=== PATIENT | female | born 1975 | race Caucasian/White ===

== ENCOUNTER 2025-02-01 13:45 | Emergency (ER) | payer OTHER, SELFPAY ==
[2025-02-01] VITALS (17 sets, daily range): BP systolic 129–179; BP diastolic 57–94; PULSE 20–75; RESP 16–24; TEMP 36.7; O2SAT 91–100; BMI 74.5
--- NOTE | 2025-02-01 14:18 | PC.NURSE ---
Son Nico Dunn [phone]
[2025-02-01 15:18] LABS: Add Manual Diff / Slide Review NO; Hematocrit 42.8 % (36-46); Hemoglobin 14.9 g/dL (12.0-16.0); Lymphocytes Absolute Auto 1100 /uL (1100-4500); Mean Corpuscular HGB Conc 34.7 % (30-36); Mean Corpuscular Hemoglobin 31.3 PG (26-34); Mean Corpuscular Volume 90.1 fL (80-100); Platelet Count 207 X10^3/uL (150-400)
[2025-02-01 15:22] LABS: Pregnancy Test Serum,Qual Negative (Negative)
[2025-02-01 15:23] LABS: Alanine Aminotransferase 18 IU/L (<35); Albumin 4.2 g/dL (3.5-5.0); Albumin Globulin Ratio 1.5 (1.0-2.8); Alkaline Phosphatase 55 U/L (38-126); Blood Urea Nitrogen 23 mg/dL (7-17); Calcium 9.2 mg/dL (8.4-10.2); Carbon Dioxide 18 mmol/L (22-32); Chloride 108 mmol/L (98-107); Estimated Glomerular Filt Rate > 60 mL/min (>60); Globulin 2.8 g/dL (1.7-4.1); Glucose 126 mg/dL (70-99); HEMOLYSIS 43 (0-50); Lipase 118 U/L (23-300); Potassium 4.3 mmol/L (3.4-5.1); Sodium 138 mmol/L (137-145); Total Protein 7.0 g/dL (6.3-8.2)
[2025-02-01] MEDS: SODIUM CHLORIDE 0.9% 1,000 ML 1000 ML IV (15:24)
[2025-02-01] MEDS: ONDANSETRON 4 MG/2 ML INJ IV (15:25)
[2025-02-01 16:05] LABS: Appearance Urine UA CLEAR; Bilirubin Urine UA NEGATIVE (NEGATIVE); Color Urine UA YELLOW; Glucose Urine UA NEGATIVE (Negative); Ketones Urine UA 2+ (NEGATIVE); Leukocyte Esterase Urine UA NEGATIVE (NEGATIVE); Nitrite Urine UA NEGATIVE (Negative); Occult Blood Urine UA NEGATIVE (Negative); Protein Urine UA NEGATIVE (Negative); Specific Gravity Urine UA 1.020 (1.000-1.035); Urobilinogen Urine UA 1.0 E.U./dL (0.2); pH Urine UA 7.5 (4.5-8.0)
[2025-02-01 16:14] LABS: Culture Indicated Urine Cult Not Indicated
--- NOTE | 2025-02-01 16:51 | ED.ABDPAIN ---
HPI - Abdominal Pain General Chief Complaint: Abdominal Pain Stated Complaint: Vomitting, Abd Pain Time Seen by Provider: 02/01/25 15:04 Mode of arrival: EMS History of Present Illness HPI narrative: Pt presents to the ER with a past medical history significant for heavy alcohol use (quit September 08). Velia, a 50-year-old female, reports constant abdominal pain for the past three days. The pain is located across the upper abdomen and has been persistent since onset, with a brief period of slight improvement that never fully resolved. The pain is currently described as severe. The abdominal pain started concurrently with episodes of vomiting, which began three days ago. She reports vomiting 5-6 times in the last 24 hours, with no blood noted in the vomit. The patient denies any history of stomach issues, pancreatitis, or diverticulitis. She also denies current diarrhea or pain when urinating. The patient has taken ibuprofen at home for pain relief. She denies any known allergies. The patient reports using marijuana recreationally but has quit alcohol use as of September 08. Her last menstrual period was last month, and she is not on any control. Related Data Previous Rx's ?Medication ?Instructions ?Recorded ciprofloxacin HCl 500 mg tablet 500 mg PO BID #14 tabs 02/01/25 metronidazole 500 mg tablet 500 mg PO Q8H #21 tabs 02/01/25 ondansetron 4 mg disintegrating 4 mg PO Q8H #12 tabs 02/01/25 tablet oxycodone-acetaminophen 5 mg-325 1 tab PO Q6H PRN pain #10 tabs 02/01/25 mg tablet (Percocet) Allergies Allergy/AdvReac Type Severity Reaction Status Date / Time No Known Drug Allergies Allergy Verified 02/01/25 13:50 Patient History Social History Smoking Status: Current some day smoker Smoking Status: Current some day smoker Exam Narrative Exam Narrative: VS as noted above Focused physical exam as follows: General: Well developed, well nourished, very uncomfortable and writing in pain HEENT: pink palpebral conjunctiva, anicteric sclera, LISSET, moist mucous membranes, no JVD, no cervical lymphadenopathy Lungs: no respiratory distress, clear to auscultation without wheezes or crackles; equal breath sounds Heart: normal rate, regular rhythm, no appreciable murmurs Abdomen: soft, diffuse tenderness across upper abdomen, no rebound or rigidity Musculoskeletal: no gross deformities with full ROM in all extremities, no pedal edema Skin: pink, warm; no rashes Neuro: ?AAOx3, GCS 15, nonfocal exam Psyche: no SI/HI, normal affect Initial Vital Signs Initial Vital Signs: Vital Signs Temperature 98.1 F 02/01/25 13:48 Pulse Rate 46 L 02/01/25 13:48 Respiratory Rate 16 02/01/25 13:48 Blood Pressure 133/66 02/01/25 13:48 Pulse Oximetry 100 02/01/25 13:48 Oxygen Delivery Method Room Air 02/01/25 13:48 Course Orders Ordered: Discontinued Medications Ciprofloxacin (Ciprofloxacin 250 Mg Tablet) 500 mg PO NOW ONE Stop: 02/01/25 18:08 Last Admin: 02/01/25 18:17 Dose: 500 mg Documented By: SELINA Hydromorphone HCl (Hydromorphone Hcl 0.5 Mg/0.5 Ml Syringe) 0.5 mg IV NOW ONE Stop: 02/01/25 15:10 Last Admin: 02/01/25 15:25 Dose: 0.5 mg Documented By: SELINA Hydromorphone HCl (Hydromorphone Hcl 0.5 Mg/0.5 Ml Syringe) 0.5 mg IV NOW ONE Stop: 02/01/25 17:18 Last Admin: 02/01/25 17:30 Dose: 0.5 mg Documented By: SELINA Sodium Chloride (Normal Saline 0.9%) 1,000 mls @ 1,000 mls/hr IV BOLUS ONE Stop: 02/01/25 16:08 Last Infusion: 02/01/25 16:20 Dose: Infused Documented By: Admin: 02/01/25 15:24 Dose: 1,000 mls/hr Documented By: SELINA Metronidazole (Metronidazole 500 Mg Tablet) 500 mg PO NOW ONE Stop: 02/01/25 18:08 Last Admin: 02/01/25 18:16 Dose: 500 mg Documented By: SELINA Ondansetron HCl (Ondansetron 4 Mg/2 Ml Inj) 4 mg IV NOW ONE Stop: 02/01/25 15:10 Last Admin: 02/01/25 15:25 Dose: 4 mg Documented By: SELINA Vital Signs Vital signs: Vital Signs - 8 hr 02/01/25 13:48 02/01/25 13:50 02/01/25 13:51 Temperature 98.1 F Pulse Rate 46 L 50 L Respiratory Rate 16 24 Blood Pressure 133/66 Pulse Oximetry 100 92 100 Oxygen Delivery Method Room Air 02/01/25 13:51 02/01/25 14:00 02/01/25 14:01 Temperature Pulse Rate 75 60 Respiratory Rate 20 22 Blood Pressure 133/66 Pulse Oximetry 97 99 Oxygen Delivery Method 02/01/25 14:01 02/01/25 14:30 02/01/25 14:30 Temperature Pulse Rate 64 Respiratory Rate Blood Pressure 142/57 H 154/94 H Pulse Oximetry 91 Oxygen Delivery Method 02/01/25 15:00 02/01/25 15:01 02/01/25 15:01 Temperature Pulse Rate 45 L 47 L Respiratory Rate 23 22 Blood Pressure 155/88 H Pulse Oximetry 95 Oxygen Delivery Method 02/01/25 15:30 02/01/25 15:32 02/01/25 15:32 Temperature Pulse Rate 50 L 47 L Respiratory Rate 16 23 Blood Pressure 143/75 H Pulse Oximetry Oxygen Delivery Method 02/01/25 15:52 02/01/25 15:52 02/01/25 16:00 Temperature Pulse Rate 24 L Respiratory Rate Blood Pressure 136/74 138/81 Pulse Oximetry 96 Oxygen Delivery Method 02/01/25 16:00 02/01/25 16:30 02/01/25 16:30 Temperature Pulse Rate 22 L 20 L Respiratory Rate 16 16 Blood Pressure 129/69 Pulse Oximetry 99 97 Oxygen Delivery Method 02/01/25 17:00 02/01/25 17:00 02/01/25 17:31 Temperature Pulse Rate 24 L 47 L Respiratory Rate 17 24 Blood Pressure 146/68 H Pulse Oximetry 99 100 Oxygen Delivery Method MDM - Abdominal Pain Lab Data 02/01/25 13:55 02/01/25 13:55 Labs: Lab Results 02/01/25 02/01/25 Range/Units 13:55 15:55 WBC 7.1 (4.5-11.0) X10^3/uL RBC 4.76 (4.0-5.2) X10^6/uL Hgb 14.9 (12.0-16.0) g/dL Hct 42.8 (36-46) % MCV 90.1 (80-100) fL MCH 31.3 (26-34) PG MCHC 34.7 (30-36) % RDW 12.8 (11.6-14.8) % Plt Count 207 (150-400) X10^3/uL Neut % (Auto) 79.3 H (50-75) % Lymph % (Auto) 15.1 L (25-40) % [place] % (Auto) 3.2 (3-14) % Eos % (Auto) 2.1 (2-4) % Baso % (Auto) 0.3 (0-2) % Neut # (Auto) 5600 (3029-6803) /uL Lymph # (Auto) 1100 (3728-9491) /uL [place] # (Auto) 200 (0-900) /uL Eos # (Auto) 200 (0-450) /uL Baso # (Auto) 0 (0-100) /uL Sodium 138 (137-145) mmol/L Potassium 4.3 (3.4-5.1) mmol/L Chloride 108 H (98-107) mmol/L Carbon Dioxide 18 L (22-32) mmol/L BUN 23 H (7-17) mg/dL Creatinine 0.94 (0.52-1.04) mg/dL Estimated GFR > 60 (>60) mL/min BUN/Creatinine Ratio 24.5 H (6-22) Glucose 126 H (70-99) mg/dL Calcium 9.2 (8.4-10.2) mg/dL Total Bilirubin 0.9 (0.2-1.3) mg/dL AST 26 (14-36) IU/L ALT 18 (<35) IU/L Alkaline Phosphatase 55 (38-126) U/L Total Protein 7.0 (6.3-8.2) g/dL Albumin 4.2 (3.5-5.0) g/dL Globulin 2.8 (1.7-4.1) g/dL Albumin/Globulin Ratio 1.5 (1.0-2.8) Lipase 118 (23-300) U/L Serum , Qual Negative (Negative) Urine Color Yellow Urine Appearance Clear Urine pH 7.5 (4.5-8.0) Ur Specific [place] 1.020 (1.000-1.035) Urine Protein Negative (Negative) Urine Glucose (UA) Negative (Negative) g/dL Urine Ketones 2+ H (NEGATIVE) Urine Occult Blood Negative (Negative) Urine Nitrate Negative (Negative) Urine Bilirubin Negative (NEGATIVE) Urine Urobilinogen 1.0 (0.2) E.U./dL Ur Leukocyte Esterase Negative (NEGATIVE) Urine RBC 0-1/hpf (0-5/HPF) Urine WBC 0-1/hpf (0-5/HPF) Ur Squamous Epith Cells 1-5 /hpf (0-5/HPF) Amorphous Sediment 2+ Urine Bacteria Occasional (0-1) (None) Ur Culture Indicated? Cult not indicated Vol Urine Centrifuged 10ml (spun) Imaging Data CT scan - abdomen/pelvis: Radiologist's Impression: Diffuse appearance of thickening within the colon without appreciable inflammatory change. This could represent diffuse incomplete distention. However, very early colitis should be considered secondary to infection/inflammation. Lobulated enhancing portions of the uterus suggestive of fibroids MDM Narrative Medical decision making narrative: HPI, PMHx, PSHx, Medication list, Allergies, ROS and Focused exam were reviewed above. ?Differential diagnosis as noted below. ?Social determinants affecting care considered. ?All of these were taken into consideration warranting above listed work up. ?Consultations as deemed necessary were documented below (if listed). Labs (if ordered and noted) were independently reviewed by me. Imaging studies (if ordered and noted) were independently reviewed by me EKG (if noted) was independently reviewed by me External documents (if reviewed) are documented above Initial VS noted above. ? Differential diagnosis considered include (but not limited to) the following: hiatal hernia, gastritis, GERD, gastric ulcer, pancreatitis, cholelithiasis/cystitis, liver failure, kidney failure, colitis, constipation, appendicitis, UTI, pyelo, ureteral calculus, diverticulitis, dehydration, adverse effect of illicit drug/ETOH Pt interviewed and examined. Pt with significant reproducible upper abdominal pain. IVF bolus, Dilaudid and Zofran ordered while awaiting studies. Labs reviewed - unremarkable. CT abd/pelvis ordered to further evaluate. See results above. Additional Dilaudid given for pain. Discussed plan of care. Will treat with antibiotics for colitis, Percocet for pain and nausea meds as needed. Stable for discharge with return precautions. Discharge Plan Departure Patient Disposition: Home Clinical Impression: Colitis, Epigastric abdominal pain Instructions: DI for Abdominal Pain-Adult, DI for Colitis Activity Restrictions/Additional Instructions: Work up today was generally reassuring although CT showed possible inflammation of your large intestines. Complete antibiotic course. Use Ibuprofen for mild pain and Percocet for severe pain. Use Zofran for nausea. Drink plenty of fluids. Eat at regular intervals. Return to the ER if with worsening symptoms. Prescriptions: New ciprofloxacin HCl 500 mg tablet 500 mg PO BID Qty: 14 0RF metronidazole 500 mg tablet 500 mg PO Q8H Qty: 21 0RF oxycodone-acetaminophen [Percocet] 5-325 mg tablet 1 tab PO Q6H PRN (Reason: pain) Qty: 10 0RF ondansetron 4 mg tablet,disintegrating 4 mg PO Q8H Qty: 12 0RF Stand Alone Forms: Patient Portal/API
--- NOTE | 2025-02-01 16:55 | DI.CT.S_ITS ---
PROCEDURE: CT ABDOMEN PELVIS W CON INDICATIONS: upper abdominal pain TECHNIQUE: After the administration of intravenous contrast, axial sections acquired from the lung bases to the pubic symphysis. Coronal and sagittal reformats were performed. For radiation dose reduction, the following was used: automated exposure control, adjustment of mA and/or kV according to patient size. COMPARISON: None. FINDINGS: Image quality: Diagnostic. Lower Chest: No significant findings. ABDOMEN: Liver: No solid mass. Liver measures 20.7 cm with steatosis. Gallbladder: Possible punctate dependent luminal stone without thickening. Biliary ducts: No biliary dilation. Pancreas: No ductal dilation. Spleen: Size is within normal limits. Adrenal Glands: No adrenal nodules. Kidneys and Ureters: No hydronephrosis. No solid mass. No complex renal cystic lesion which requires follow up. Stomach and Bowel: There is an overall appearance of thickening the within the colon. No pericolonic inflammatory change.. Minimal diverticula inflammatory change. Appendix is normal. Peritoneum: No abnormal intraperitoneal fluid. No free air. Ventral Wall: No significant ventral hernia. Abdominal Nodes: No retroperitoneal or mesenteric adenopathy by size criteria. Vessels: Aorta and inferior vena cava are normal in size. PELVIS: Pelvic Organs: Lobulated uterus with areas of enhancement. Bladder: No bladder wall thickening, accounting for underdistention. Pelvic Nodes: No enlarged lymph nodes. Miscellaneous: No inguinal hernias are seen. Bones: No aggressive osseous abnormality. IMPRESSION: Diffuse appearance of thickening within the colon without appreciable inflammatory change. This could represent diffuse incomplete distention. However, very early colitis should be considered secondary to infection/inflammation. Lobulated enhancing portions of the uterus suggestive of fibroids Dictated by: Yuliana Robles M.D. on 02/01/2025 at 17:48 Approved by: Yuliana Robles M.D. on 02/01/2025 at 17:52
[2025-02-01] MEDS: CIPROFLOXACIN 250 MG TABLET 500 MG PO (18:17)
== END 2025-02-01 18:31 | disposition home or self-care (01) ==
PROVIDERS: Emergency Provider Emergency Medicine
DX: K52.9 Noninfective gastroenteritis and colitis, unspecified (principal); R10.13 Epigastric pain
CPT/HCPCS: 74177; 80053; 81001; 83690; 84703; 85025; 96361; 96374; 96375; 96376; 99284; J1171; J2405; Q9967

== ENCOUNTER 2025-02-10 13:05 | Emergency (ER) | payer OTHER, SELFPAY ==
[2025-02-10 13:40] VITALS: BP 97/53; PULSE 77; RESP 16; TEMP 36.7; O2SAT 100; BMI 34.0
--- NOTE | 2025-02-10 14:08 | EKG_ITS ---
[facility] [address] [place] [id number] Test Date: 2025-02-10 Pat Name: Velia Dunn Department: [facility] Room: Gender: Female [employer]: CATALINA : 1975 Requested By: Order Number: [id number] Reading MD: Gene Valencia Measurements Intervals [place] Rate: 53 P: 53 GA: 132 QRS: 47 QRSD: 92 T: 41 QT: 444 QTc: 416 Interpretive Statements Sinus bradycardia Electronically Signed On 02-16-2025 7:26:35 PDT by Gene Valencia
[2025-02-10 14:27] LABS: Add Manual Diff / Slide Review NO; Hematocrit 42.3 % (36-46); Hemoglobin 14.2 g/dL (12.0-16.0); Lymphocytes Absolute Auto 1400 /uL (1100-4500); Mean Corpuscular HGB Conc 33.5 % (30-36); Mean Corpuscular Hemoglobin 30.7 PG (26-34); Mean Corpuscular Volume 91.4 fL (80-100); Platelet Count 209 X10^3/uL (150-400)
[2025-02-10 14:39] LABS: Alanine Aminotransferase 24 IU/L (<35); Albumin 3.9 g/dL (3.5-5.0); Albumin Globulin Ratio 1.4 (1.0-2.8); Alkaline Phosphatase 51 U/L (38-126); Blood Urea Nitrogen 20 mg/dL (7-17); Calcium 9.0 mg/dL (8.4-10.2); Carbon Dioxide 20 mmol/L (22-32); Chloride 113 mmol/L (98-107); Estimated Glomerular Filt Rate 59 mL/min (>60); Globulin 2.7 g/dL (1.7-4.1); Glucose 99 mg/dL (70-99); HEMOLYSIS < 15 (0-50); Lipase 180 U/L (23-300); Potassium 4.0 mmol/L (3.4-5.1); Sodium 139 mmol/L (137-145); Total Protein 6.6 g/dL (6.3-8.2)
[2025-02-10 17:46] VITALS: BP 114/54; PULSE 56; RESP 18; O2SAT 99
--- NOTE | 2025-02-10 19:45 | ED.ABDPAIN ---
HPI - Abdominal Pain General Chief Complaint: Abdominal Pain Stated Complaint: Return; abd pain and not getting better Time Seen by Provider: 02/10/25 19:44 Source: patient Mode of arrival: Ambulatory History of Present Illness HPI narrative: 50-year-old female with history of alcohol use last drink September 2024, upper abdominal pain evaluation [facility] ED 3 weeks ago believes that she was given in the antacid but not taking any oral antacid regularly since that time, has nontraumatic upper abdominal pain for the last week. Some nausea without emesis. No loose stools, no black or red stools. No fevers or chills. No painful or frequent urination. No cough or shortness of breath. Related Data Previous Rx's ?Medication ?Instructions ?Recorded ciprofloxacin HCl 500 mg tablet 500 mg PO BID #14 tabs 02/01/25 metronidazole 500 mg tablet 500 mg PO Q8H #21 tabs 02/01/25 ondansetron 4 mg disintegrating 4 mg PO Q8H #12 tabs 02/01/25 tablet oxycodone-acetaminophen 5 mg-325 1 tab PO Q6H PRN pain #10 tabs 02/01/25 mg tablet (Percocet) omeprazole 20 mg capsule,delayed 20 mg PO DAILY upper abdominal 02/10/25 release pain 30 days #30 caps Allergies Allergy/AdvReac Type Severity Reaction Status Date / Time No Known Drug Allergies Allergy Verified 02/10/25 13:40 Patient History Smoking Status: Current every day smoker Exam Narrative Exam Narrative: GENERAL: Well-developed patient, in mild distress. HEAD: Atraumatic. Normocephalic. EYES: Pupils equal round and reactive. Extraocular motions intact. No scleral icterus. No injection or drainage. ENT: Nose without bleeding, purulent drainage. Throat without erythema, tonsillar hypertrophy or exudate. Airway patent. NECK: Trachea midline. Non tender CARDIOVASCULAR: Regular rate and rhythm without murmurs, gallops, or rubs. RESPIRATORY: Clear to auscultation. Breath sounds equal bilaterally. No wheezes, rales, or rhonchi. GASTROINTESTINAL: Abdomen with epigastric area tenderness, nondistention, no tenderness right upper quadrant or right mid lower quadrant, nor in left lower quadrant left-sided. Periumbilical or inguinal or other ventral hernia obvious on examination. Bowel tones unremarkable, without rushes or tinkles. EXTREMITIES: No edema or joint tenderness. BACK: Nontender without deformity or crepitance. No flank tenderness. NEURO: AOx3. Motor functions grossly nonfocal. SKIN: No rash or erythema of visible areas Initial Vital Signs Initial Vital Signs: Vital Signs Temperature 98.0 F 02/10/25 13:40 Pulse Rate 77 02/10/25 13:40 Respiratory Rate 16 02/10/25 13:40 Blood Pressure 97/53 L 02/10/25 13:40 Pulse Oximetry 100 02/10/25 13:40 Oxygen Delivery Method Room Air 02/10/25 13:40 Course Orders Ordered: Discontinued Medications Sodium Chloride (Normal Saline 0.9%) 1,000 mls @ 1,000 mls/hr IV BOLUS ONE Stop: 02/10/25 20:51 Last Admin: 02/10/25 21:13 Dose: Not Given Documented By: ANIL Ondansetron HCl (Ondansetron 4 Mg/2 Ml Inj) 4 mg IV NOW PRN PRN Reason: Nausea And Vomiting Ondansetron HCl (Ondansetron 4 Mg Odt) 4 mg PO NOW PRN PRN Reason: Nausea And Vomiting Pantoprazole Sodium (Pantoprazole 40 Mg Vial) 40 mg IV NOW ONE Stop: 02/10/25 19:54 Last Admin: 02/10/25 21:05 Dose: 40 mg Documented By: ANIL Vital Signs Vital signs: Vital Signs - 8 hr 02/10/25 13:40 02/10/25 17:46 Temperature 98.0 F Pulse Rate 77 56 L Respiratory Rate 16 18 Blood Pressure 97/53 L 114/54 L Pulse Oximetry 100 99 Oxygen Delivery Method Room Air Room Air MDM - Abdominal Pain Lab Data Attestation: I reviewed the patient's lab results. Lab results narrative: White blood cell count 4700, with hemoglobin 14.2, platelets adequate. Glucose 99. BUN 20 with creatinine 1.14. Serum CO2 20 mildly decreased. Electrolytes unremarkable. Liver functions and lipase normal. 02/10/25 14:18 02/10/25 14:18 Labs: Lab Results 02/10/25 Range/Units 14:18 WBC 4.7 (4.5-11.0) X10^3/uL RBC 4.63 (4.0-5.2) X10^6/uL Hgb 14.2 (12.0-16.0) g/dL Hct 42.3 (36-46) % MCV 91.4 (80-100) fL MCH 30.7 (26-34) PG MCHC 33.5 (30-36) % RDW 13.8 (11.6-14.8) % Plt Count 209 (150-400) X10^3/uL Neut % (Auto) 57.0 (50-75) % Lymph % (Auto) 31.1 (25-40) % [place] % (Auto) 5.9 (3-14) % Eos % (Auto) 5.1 H (2-4) % Baso % (Auto) 0.9 (0-2) % Neut # (Auto) 2700 (7346-6300) /uL Lymph # (Auto) 1400 (4581-2466) /uL [place] # (Auto) 300 (0-900) /uL Eos # (Auto) 200 (0-450) /uL Baso # (Auto) 0 (0-100) /uL Sodium 139 (137-145) mmol/L Potassium 4.0 (3.4-5.1) mmol/L Chloride 113 H (98-107) mmol/L Carbon Dioxide 20 L (22-32) mmol/L BUN 20 H (7-17) mg/dL Creatinine 1.14 H (0.52-1.04) mg/dL Estimated GFR 59 L (>60) mL/min BUN/Creatinine Ratio 17.5 (6-22) Glucose 99 (70-99) mg/dL Calcium 9.0 (8.4-10.2) mg/dL Total Bilirubin 0.4 (0.2-1.3) mg/dL AST 27 (14-36) IU/L ALT 24 (<35) IU/L Alkaline Phosphatase 51 (38-126) U/L Total Protein 6.6 (6.3-8.2) g/dL Albumin 3.9 (3.5-5.0) g/dL Globulin 2.7 (1.7-4.1) g/dL Albumin/Globulin Ratio 1.4 (1.0-2.8) Lipase 180 D (23-300) U/L Imaging Data CT scan - abdomen/pelvis: Radiologist's Impression: [address] [address] [address] Scan Report Signed Patient: Velia Dunn MR#: [id number] : 1975 Acct:[id number] Age/Sex: 50 / F Date of Service: 02/10/25 Loc: ED Accession Number: [id number] Procedure: CT abdomen pelvis w con Ordering Provider: Kaushik Hayward MD PROCEDURE: CT ABDOMEN PELVIS W CON INDICATIONS: epig pain TECHNIQUE: After the administration of intravenous contrast, axial sections acquired from the lung bases to the pubic symphysis. Coronal and sagittal reformats were performed. For radiation dose reduction, the following was used: automated exposure control, adjustment of mA and/or kV according to patient size. COMPARISON: [facility], CT, CT ABDOMEN PELVIS W CON, 02/01/2025, 17:19. FINDINGS: Image quality: Diagnostic. Lower Chest: No significant findings. ABDOMEN: Liver: No solid mass. Hepatomegaly. Gallbladder: Decompressed. No calcified stones. Biliary ducts: No biliary dilation. Pancreas: No ductal dilation. Spleen: Size is within normal limits. Adrenal Glands: No adrenal nodules. Kidneys and Ureters: No hydronephrosis. No solid mass. No complex renal cystic lesion which requires follow up. Few small nonobstructing stones on the right measuring 4 mm or less. Subcentimeter hypodensities, too small to accurately characterize. Stomach and Bowel: Normal colonic caliber, without significant wall thickening. Mild diverticulosis without evidence of acute diverticulitis. Moderate stool burden. Normal appendix. Peritoneum: No abnormal intraperitoneal fluid. No free air. Ventral Wall: No significant ventral hernia. Abdominal Nodes: No retroperitoneal or mesenteric adenopathy by size criteria. Vessels: Aorta and inferior vena cava are normal in size. PELVIS: Pelvic Organs: Multiple uterine fibroids are redemonstrated.. Bladder: No bladder wall thickening, accounting for underdistention. Pelvic Nodes: No enlarged lymph nodes. Miscellaneous: No inguinal hernias are seen. Bones: No aggressive osseous abnormality. Stable lytic area within the right pubic bone. Grade 1 anterolisthesis of L5 on S1 with bilateral pars interarticularis defects. IMPRESSION: No acute findings within the abdomen or pelvis. Please see above for additional incidental findings. Dictated by: Carlos Irving M.D. on 02/10/2025 at 20:34 Approved by: Carlos Irving M.D. on 02/10/2025 at 20:41 ECG Data Attestation: I personally reviewed and interpreted this ECG as follows: Interpretation: 1408, sinus bradycardia with rate of 53, no obvious ST segment elevation or depression changes. OR 132, QRS 92, QTC 416. MDM Narrative Medical decision making narrative: 50-year-old female with history of prior alcohol use, dry since September 2024, upper abdominal pain evaluation 3 weeks ago, more recent diagnosis of colitis having completed course of oral antibiotics ciprofloxacin metronidazole. Afebrile, sirs screen negative. Epigastric area tenderness. DX consider alcoholic gastritis, pancreatitis, biliary disease, choledocholithiasis, recurrence of colitis, other. Initial labs: White blood cell count 4700, with hemoglobin 14.2, platelets adequate. Glucose 99. BUN 20 with creatinine 1.14. Serum CO2 20 mildly decreased. Electrolytes unremarkable. Liver functions and lipase normal. Some tenderness on examination, declines pain medications for this time, IV Protonix. She would like to have repeat imaging. GFR favorable. CT abdomen and pelvis ordered. Keep NPO. CT abdomen and pelvis, no acute changes. See radiology report. Trial of regular scheduled omeprazole for 1 month, recheck with PCP, consider upper endoscopy if not improved in this next week, or if recurrence of symptoms post treatment course. DC home. Return precautions discussed. Discharge Plan Departure Patient Disposition: Home Clinical Impression: Epigastric abdominal pain Instructions: DI for Epigastric Pain Activity Restrictions/Additional Instructions: Upper middle abdominal pain of unclear cause, recent course of antibiotics ciprofloxacin and metronidazole for recent CT diagnosis colitis. Colitis was not confirmed on CT scanning today, no acute changes noted. Screening labs essentially unremarkable. Trial of antacid omeprazole on a regular scheduled basis daily for 1 month healing course. Consider upper endoscopy, discuss this with your primary care provider. Call to meet with your provider later this week. Return to this/nearest emergency department for any change worsening symptoms or any concerns prior. Prescriptions: New omeprazole 20 mg capsule,delayed release(DR/EC) 20 mg PO DAILY 30 Days Qty: 30 0RF No Action ciprofloxacin HCl 500 mg tablet 500 mg PO BID Qty: 14 0RF metronidazole 500 mg tablet 500 mg PO Q8H Qty: 21 0RF oxycodone-acetaminophen [Percocet] 5-325 mg tablet 1 tab PO Q6H PRN (Reason: pain) Qty: 10 0RF ondansetron 4 mg tablet,disintegrating 4 mg PO Q8H Qty: 12 0RF Stand Alone Forms: Patient Portal/API
--- NOTE | 2025-02-10 19:52 | DI.CT.S_ITS ---
PROCEDURE: CT ABDOMEN PELVIS W CON INDICATIONS: epig pain TECHNIQUE: After the administration of intravenous contrast, axial sections acquired from the lung bases to the pubic symphysis. Coronal and sagittal reformats were performed. For radiation dose reduction, the following was used: automated exposure control, adjustment of mA and/or kV according to patient size. COMPARISON: [facility], CT, CT ABDOMEN PELVIS W CON, 02/01/2025, 17:19. FINDINGS: Image quality: Diagnostic. Lower Chest: No significant findings. ABDOMEN: Liver: No solid mass. Hepatomegaly. Gallbladder: Decompressed. No calcified stones. Biliary ducts: No biliary dilation. Pancreas: No ductal dilation. Spleen: Size is within normal limits. Adrenal Glands: No adrenal nodules. Kidneys and Ureters: No hydronephrosis. No solid mass. No complex renal cystic lesion which requires follow up. Few small nonobstructing stones on the right measuring 4 mm or less. Subcentimeter hypodensities, too small to accurately characterize. Stomach and Bowel: Normal colonic caliber, without significant wall thickening. Mild diverticulosis without evidence of acute diverticulitis. Moderate stool burden. Normal appendix. Peritoneum: No abnormal intraperitoneal fluid. No free air. Ventral Wall: No significant ventral hernia. Abdominal Nodes: No retroperitoneal or mesenteric adenopathy by size criteria. Vessels: Aorta and inferior vena cava are normal in size. PELVIS: Pelvic Organs: Multiple uterine fibroids are redemonstrated.. Bladder: No bladder wall thickening, accounting for underdistention. Pelvic Nodes: No enlarged lymph nodes. Miscellaneous: No inguinal hernias are seen. Bones: No aggressive osseous abnormality. Stable lytic area within the right pubic bone. Grade 1 anterolisthesis of L5 on S1 with bilateral pars interarticularis defects. IMPRESSION: No acute findings within the abdomen or pelvis. Please see above for additional incidental findings. Dictated by: Carlos Irving M.D. on 02/10/2025 at 20:34 Approved by: Carlos Irving M.D. on 02/10/2025 at 20:41
[2025-02-10] MEDS: PANTOPRAZOLE 40 MG VIAL IV (21:05)
[2025-02-10 21:16] VITALS: BP 124/82; PULSE 64; RESP 16; O2SAT 98
== END 2025-02-10 21:17 | disposition home or self-care (01) ==
PROVIDERS: Family Medicine; Emergency Provider Emergency Medicine
DX: R10.13 Epigastric pain (principal); R11.0 Nausea
CPT/HCPCS: 36415; 74177; 80053; 83690; 85025; 93005; 96374; 99284; J2470; Q9967

== ENCOUNTER 2025-04-18 12:31 | Day surgery (SDC) | payer OTHER, SELFPAY ==
--- NOTE | 2025-04-18 | PATH_ITS ---
[facility] Accession Number: [id number] No. of containers..02 Tissue . 01 Material submitted: . PART A: stomach - ANTRAL PART B: stomach - GASTRIC POLYP . 01 Clinical history: . A) R/O H.PYLORI . 01 Diagnosis: A. ANTRUM: Mild chronic gastritis. No Helicobacter pylori organisms identified on immunohistochemical evaluation. No intestinal metaplasia, dysplasia, or malignancy. . B. GASTRIC POLYP: Mild chronic gastritis. No Helicobacter pylori organisms identified on immunohistochemical evaluation. No intestinal metaplasia, dysplasia, or malignancy. MRV 04/29/2025 1319 Local . 01 Electronically signed: . Tia Arroyo MD, Pathologist NPI- [id number] . 01 Gross description: . Received are two formalin-filled containers both labeled with the patient's name. . A. In a container labeled antral biopsy, are two fragments of goldberg, soft tissue which range in size from 0.1 x 0.1 x 0.1 cm to 0.2 x 0.2 x 0.1 cm. All fragments are totally submitted in cassette A1. B. In a container labeled gastic polyp, are two fragments of goldberg, soft tissue which range in size from 0.2 x 0.2 x 0.2 cm to 0.3 x 0.3 x 0.2 cm. All fragments are totally submitted in cassette B1. ([id number]) /ANJELICA 04/26/2025 0025 Local . 01 Microscopic: . A. An immunohistochemical stain was performed to evaluate for Helicobacter organisms and is negative. The control stain showed appropriate reactivity. . B. An immunohistochemical stain was performed to evaluate for Helicobacter organisms and is negative. The control stain showed appropriate reactivity. . * This test was developed and the performance characteristics were validated by [employer]. It has not been cleared or approved by the [place].S. Food and Drug Administration. . 01 Pathologist provided ICD-10: K29.70 . 01 CPT . 746159, 059174, [id number] Specimen Comment: A courtesy copy of this report has been sent to [facility] Performed at: [address] [address], [place], [place] [id number] MD Riccardo Monteiro MD Phone: [phone]
--- NOTE | 2025-04-18 06:08 | PM.HP.IH.1 ---
History of Present Illness History of Present Illness Date Patient Seen: 04/18/25 Time Patient Seen: 06:08 Chief complaint: Esophagogastroduodenoscopy/Colonoscopy with Biopsy Narrative: Patient presents for evaluation of abdominal pain. She predominantly has epigastric abdominal pain. She has had this since January. She had an episode of severe nausea and vomiting. She was diagnosed with colitis in the emergency room and given antibiotics and this seemed to improve her symptoms. At times her epigastric pain becomes severe. She has a sensitive stomach but no specific fatty food intolerance. She can not pinpoint exacerbating factors. Sometimes if she eats dinner late she will have abdominal pain prior to the meal and eating food improves her pain. Spicy foods bother her stomach. She had a peptic ulcer a long time ago and this resolved with PPI medication. She states the symptoms are way worse than when she had an ulcer. She has a history of ethanol abuse and has been sober for 6 months. She takes ibuprofen nearly daily and tries to reduce her intake. She denies blood in urine vomit or stool. She states that more recently she has been incontinent of stool but this has not been evaluated prior. She is due for screening colonoscopy. [facility] Medical History (Updated 04/18/25 @ 06:09 by Cedric Vu MD) Epigastric abdominal pain Tobacco use Migraines (~1977) History of urinary incontinence (~2022) Hypothyroidism (~1994) History of alcohol use Surgical History (Updated 02/23/25 @ 20:53 by Domitila Akins) Anesthesia History of tubal ligation (~2000) Family History (Updated 02/23/25 @ 20:54 by Domitila Akins) Father Cancer Mother History of heart disease Hypertension Stroke Meds Home Medications and Allergies Home Medications ?Medication ?Instructions ?Recorded ?Confirmed ?Type levothyroxine 150 mcg tablet 150 mcg PO DAILY 02/13/25 03/18/25 History omeprazole 20 mg capsule,delayed 20 mg PO BID upper abdominal pain 02/13/25 03/18/25 Rx release #60 caps sodium,potassium,mag sulfates 17.5 See Rx Instructions PO .COMPLEX 03/18/25 Rx gram-3.13 gram-1.6 gram oral soln #354 mL (Suprep Bowel Prep Kit) Allergies Allergy/AdvReac Type Severity Reaction Status Date / Time No Known Drug Allergies Allergy Verified 09/08/25 08:27 Exam Narrative Exam Narrative: Const General: healthy appearing, comfortable and no acute distress Orientation: alert and oriented x3 HENMT Ears: hearing grossly normal bilaterally Eyes Visual Smallwood: normal visual smallwood by confrontation Conjunctivae: conjunctivae normal Sclera: sclerae normal EOM: EOM intact bilaterally Neck Neck: normal visual inspection Resp Effort & Inspection: normal respiratory effort and able to speak in complete sentences Cardio Rate: regular rate GI Other: ABD: non-peritoneal, mild tenderness in epigastrium Extrem General: no pedal edema and no calf tenderness Assessment & Plan Assessment and plan (1) Epigastric abdominal pain: Status: Acute (2) Encounter for screening colonoscopy: Status: Acute Plan RUQ ultrasound ordered, patient has not had this done yet. Plan EGD to r/o PUD, hypylori, gastritis, refulx. Plan screening colonoscopy, possible biopsy. The risks, benefits and options regarding the procedure were explained to the patient in detail. Risk discussion included but not limited to: bleeding, perforation, unable to reach cecum, missed lesion. The patient was encouraged to ask questions and they were answered to their satisfaction. The patient understands and is agreeable to proceed. Time-Based Coding :: [TOTAL MINUTES] spent with patient and on the chart (including review of chart, obtaining history, exam, reviewing outside data, placing orders, documenting exam and treatment plan, and counseling patient) on [DATE]. [employer] Operator Document charge(s): Yes Charge Codes Inpatient/observation care including admit and discharge same day: [id number]
[2025-04-18 12:48] VITALS: BP 118/81; PULSE 70; RESP 12; TEMP 36.5; O2SAT 99
[2025-04-18] MEDS: LACTATED RINGERS 1,000 ML 42 ML IV (13:03)
--- NOTE | 2025-04-18 13:43 | PM.OP.EC ---
Operative Date/Time/Diagnoses Date of procedure: 04/18/25 Time of procedure: 14:32 Pre-op diagnosis: Epigastric pain, colitis Post-op diagnosis: other (Gastritis, gastric polyp) Procedure & Clinicians Study performed: EGD with biopsy, colonoscopy Same procedure(s) as scheduled: Yes Indications: 50yo F, h/o severe epigastric pain, colitis Surgeon: Cedric Vu Anesthesia Type: MAC +/- Procedure Notes SCOAP/Timeout: Performed Procedure in detail: EGD Informed consent was obtained. The procedure, its risks, benefits, and alternatives were discussed. Patient understood and agreed to proceed. The patient was placed in the left lateral decubitus position with head elevated. Sedation given per anesthesia. The video endoscope was inserted into the oropharynx and guided under direct vision into the esophagus, stomach, and duodenum which were carefully examined. The scope was retroflexed to examine the hiatus and gastroesophageal junction. Antral biopsies were obtained for Helicobacter pylori. The patient tolerated the procedure very well. There were no apparent complications. Significant EGD findings: Z-line noted at: 36cm No hiatal hernia No eosphagitis Moderate antral gastritis, biopsies taken for H pylori No ulcer in stomach or duodenum Normal duodenum Polyp 3mm sessile, benign appearing along greater curve of stomach, biopsied Colonoscopy Patient placed in left lateral recumbent position. Time out was performed. Procedural sedation was administered by anesthesia. Examination began with a thorough inspection of the perianal area. There was no evidence of fissures, fistulae, external hemorrhoids or cutaneous malignancy. The colonoscope was then placed into the rectum and the lumen was insufflated with carbon dioxide. The scope was carefully advanced forward. Ultimately the cecum was intubated and confirmed by identification of the ileocecal valve, the appendiceal orifice and the confluence of the taenia. The scope was then slowly withdrawn examining the colon thoroughly in all directions. In the rectum, retroflexion of the scope was performed for inspection of the distal rectum and anal canal. ?Significant colonoscopy findings: ?1. Quality of the preparation-good, [place] 2-3, improved with irrigation/suction ?2. Normal screening colonoscopy; no polyp, stricture, mass, no colitis Scope withdrawal time: 6 minutes Findings: gastritis Specimen(s): other (biopsies of antrum, gastric polyp) Complications: none Impression: Moderate gastritis Gastric polyp Biopsies pending Post-procedure Recommendations: Will call with biopsy results Plan for aftercare: PACU then home PPI Follow up: as needed Disposition: PACU
[2025-04-18 14:25] VITALS: BP 120/59; PULSE 67; RESP 20; TEMP 36.4; O2SAT 98
[2025-04-18 14:45] VITALS: BP 124/80; PULSE 60; RESP 15; TEMP 36.3; O2SAT 99
== END 2025-04-18 14:45 | disposition home or self-care (01) ==
PROVIDERS: Family Provider Family Medicine; PCP Family Medicine; Referring Provider Surgery; Visit Provider Surgery
PROC: 0DJ08ZZ Inspection of Upper Intestinal Tract, Via Natural or Artificial Opening Endoscopic (ICD-10-PCS; CPT 43239; principal; 2025-04-18 13:30)
PROC: 0DJD8ZZ Inspection of Lower Intestinal Tract, Via Natural or Artificial Opening Endoscopic (ICD-10-PCS; CPT 45378; 2025-04-18 13:30)
DX: Z12.11 Encounter for screening for malignant neoplasm of colon (principal); K29.70 Gastritis, unspecified, without bleeding; K31.7 Polyp of stomach and duodenum; Z87.11 Personal history of peptic ulcer disease; K29.50 Unspecified chronic gastritis without bleeding
CPT/HCPCS: 43239; 45378; J2405; J2704; J7120

== ENCOUNTER → 2025-04-26 10:57 | Outpatient (CLI) | payer OTHER, SELFPAY ==
[2025-04-26 12:52] LABS: Thyroid Stimulating Hormone < 0.015 uIU/mL (0.47-4.68)
== END ==
PROVIDERS: Family Provider Family Medicine; PCP Family Medicine; Referring Provider Family Medicine; Visit Provider Family Medicine
DX: E03.9 Hypothyroidism, unspecified (principal)
CPT/HCPCS: 36415; 84443

== ENCOUNTER → 2025-05-02 08:18 | Outpatient (CLI) | payer OTHER, SELFPAY ==
--- NOTE | 2025-05-02 08:19 | DI.US.S_ITS ---
PROCEDURE: US ABDOMEN LIMITED INDICATIONS: epigastric pain, ?gallstones TECHNIQUE: Real-time focused scanning was performed of the abdomen, with image documentation. COMPARISON: [facility], CT, CT ABDOMEN PELVIS W CON, 02/10/2025, 20:06. FINDINGS: Liver measures 15 cm. No discrete lesion. Non cirrhotic contour. Unremarkable gallbladder. CBD measures 3 mm. Unremarkable partially seen pancreas. IMPRESSION: No acute right upper quadrant abnormality on ultrasound. No discrete gallstones. Dictated by: Russ Theodore M.D. on 05/02/2025 at 10:53 Approved by: Russ Theodore M.D. on 05/02/2025 at 10:54
== END ==
LOC: US 08:19
PROVIDERS: Family Provider Family Medicine; PCP Family Medicine; Referring Provider Surgery; Visit Provider Surgery
DX: R10.13 Epigastric pain (principal)
CPT/HCPCS: 76705